=== PATIENT | male | born 1935 | race Hispanic/Latino ===

== ENCOUNTER → 2019-07-06 | Day surgery (SDC) | payer MEDICARE ==
[2019-07-03 14:11] LABS: BASOPHILS % 0.4 % (0.0-1.0); EOSINOPHILS # (AUTO) 0.3 (0.0-0.4); EOSINOPHILS % 4.2 % (0.0-6.0); HEMATOCRIT 49.2 % (38.2-49.6); HEMOGLOBIN 16.9 g/dL (14.0-18.0); LYMPHOCYTES # (AUTO) 1.7 (1.0-3.2); LYMPHOCYTES % 23.3 % (18.0-39.1); MEAN CORPUSCULAR HEMOGLOBIN 32.2 pg (28-32); MEAN CORPUSCULAR HGB CONC 34.3 g/dL (31-35); MEAN CORPUSCULAR VOLUME 93.7 fL (81-99); MONOCYTES # (AUTO) 0.5 (0.2-0.8); MONOCYTES % 7.6 % (4.4-11.3); NEUTROPHILS # (AUTO) 4.5 (2.1-6.9); NEUTROPHILS % 64.2 % (38.7-80.0); PLATELET COUNT 181 x10e3/uL (140-360); RED BLOOD COUNT 5.25 x10e6/uL (4.3-5.7); RED CELL DISTRIBUTION WIDTH 13.8 % (11.7-14.4)
[~2019-07-06] MED LIST: ARICEPT5 MG PO; ASPIRIN81 MG PO; ATORVASTATIN CA20 MG PO; CARAFATE1 GM/10 ML PO; EPHEDRINE SULFATE INJ 50 MG/10 ML SYR ONE; FENTANYL CITRATE/PF 100MCG/2 ML INJ ONE; GABAPENTIN300 MG PO; GLUCAGON FOR INJ 1 MG VIAL ONE; HYDROCHLOROTHIA25 MG PO; HYOSCYAMINE 0.125 MG TAB ONE; LOSARTAN POTAS100 MG PO; METOPROLOL SUCC50 MG PO; OMEPRAZOLE40 MG PO; PRAZOSIN HCL1 MG PO; PROPOFOL IV EMULSION 10 MG/ML 50 ML VIAL ONE
--- OUTSIDE RECORDS SUMMARY | 2019-07-06 08:17 | XMS REPORT ---
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 Name Role Phone Kayce Alvarez CP Unavailable Allergies No Known Allergies Problems Problem Type Condition Code Onset Dates Condition Status Problem Lower back pain M54.5 Active Problem Enlarged prostate with lower urinary tract symptoms (LUTS) N40.1 Active Problem Chest pain R07.9 Active Problem Non morbid obesity due to excess calories E66.09 Active Problem GERD (gastroesophageal reflux disease) K21.9 Active Problem LAE (left atrial enlargement) I51.7 Active Problem 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
--- OUTSIDE RECORDS SUMMARY | 2019-07-06 08:17 | XMS REPORT | Continuity of Care Document ---
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 Phone [email or web address] Unavailable Unavailable Problems Problem Status Onset Date Classification Date Reported Comments Source Lower back pain Active Problem 03/29/2018 Kayce Alvarez Enlarged prostate with lower urinary tract symptoms Active Problem 03/29/2018 Kayce Alvarez Chest pain Active Problem 03/29/2018 Kayce Alvarez Non morbid obesity due to excess calories Active Problem 03/29/2018 Kayce Alvarez GERD Active Problem 03/29/2018 Kayce Alvarez LAE Active Problem 03/29/2018 Kayce Alvarez Varicose veins of bilateral lower extremities with other complications Active Problem 03/29/2018 Kayce Alvarez Essential hypertension with goal blood pressure less than 130\/85 Active Diagnosis 03/29/2018 Kayce Alvarez MENG Active Problem 03/29/2018 Kayce Alvarez Acquired insufficiency of aortic valve Active Problem 03/29/2018 Kayce Alvarez Nonrheumatic mitral insufficiency Active Problem 03/29/2018 Kayce Alvarez 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 Problem 03/29/2018 Kayce Alvarez Venous insufficiency (peripheral) Active Problem 03/29/2018 Kayce Alvarez Medications Medication Details Route Status Patient Instructions Ordering Provider Order Date Source Hydrochlorothiazide 1 tablet Orally Active 25 MG Orally Once a day [place] 08/21/2017 Kayce Alvarez Hydrochlorothiazide 1 tablet Orally Active 25 MG Orally Once a day [place] 08/21/2017 Kayce Alvarez Aspirin Adult Low Dose 1 tablet Orally Active 81 MG Orally Once a day Antonio Alvarez Omeprazole 1 capsule Orally Active 20 MG Orally Once a day Antonio Alvarez Cetirizine HCl 1 tablet as needed Orally Active 10 MG Orally Once a day Antonio Alvarez Losartan Potassium 1 tablet Orally Active 50 MG Orally Once a day Antonio Alvarez Naproxen 1 tablet Orally Active 250 MG Orally Twice a day [facility] Christian Alvarez Amlodipine Besylate 1 tablet Orally Active 5 MG Orally Once a day [facility] Christina Alvarez Cetirizine HCl 1 tablet as needed Orally Active 10 MG Orally Once a day [facility] Christina Alvarez Losartan Potassium 1 tablet Orally Active 50 MG Orally Once a day [facility] Christina Antonio Aspirin Adult Low Dose 1 tablet Orally Active 81 MG Orally Once a day [facility] Antonio Omeprazole 1 capsule Orally Active 20 MG Orally Once a day [facility] [place] Naproxen 1 tablet Orally Active 250 MG Orally Twice a day [facility] Christina Alvarez Doc-Q-Lace 1 capsule as needed Orally Active 100 MG Orally Once a day [facility] Christina Alvarez Nortriptyline HCl 1 capsule Orally Active 10 MG Orally Once a day [facility] Christina Rogerscinthia Tamsulosin HCl 1 capsule 30 minutes after the same meal each day Orally Active 0.4 MG Orally Once a day [facility] Christina Rogerscinthia Amlodipine Besylate 1 tablet Orally Active 5 MG Orally Once a day [facility] Christina Alvarez Allergies, Adverse Reactions, Alerts Substance Category Reaction Severity Reaction type Status Date Reported Comments Source Seasonal Allergies Adverse Reaction Sneezing /Irritation Adverse Reaction Active 10/21/2017 Kayce Vasquez [place] Immunizations No Data Provided for This Section Results No Data Provided for This Section Pathology Reports No Data Provided for This Section Diagnostic Reports No Data Provided for This Section Consultation Notes No Data Provided for This Section Discharge Summaries No Data Provided for This Section History and Physicals No Data Provided for This Section Vital Signs Vital Sign Value Date Comments Source Weight 194 10/21/2017 Kayce Christina [place] Height 66 10/21/2017 Kayce Alvarez Temperature Oral (F) 97.4 F 10/21/2017 Kayce Alvarez Heart Rate 71 10/21/2017 Kayce Alvarez Diastolic (mm Hg) 78 10/21/2017 Kayce Alvarez Systolic (mm Hg) 120 10/21/2017 Kayce Alvarez Weight 200 08/21/2017 Kayce Alvarez Height 66 08/21/2017 Mohamed O Jeroudi Temperature Oral (F) 97.0 F 08/21/2017 Mohamed O Jeroudi Heart Rate 71 08/21/2017 Mohamed O Jeroudi Diastolic (mm Hg) 80 08/21/2017 Mohamed O Jeroudi Systolic (mm Hg) 138 08/21/2017 Mohamed O Jeroudi Weight 195 08/05/2017 Mohamed O Jeroudi Height 66 08/05/2017 Mohamed O [place]oudi Temperature Oral (F) 97.1 F 08/05/2017 Mohamed O Jeroudi Heart Rate 71 08/05/2017 Mohamed O Jeroudi Diastolic (mm Hg) 80 08/05/2017 Mohamed O Jeroudi Systolic (mm Hg) 110 08/05/2017 Mohamed O Jeroudi Weight 180 02/23/2016 Mohamed O Jeroudi Height 66 02/23/2016 Mohamed O Jeroudi Temperature Oral (F) 97.1 F 02/23/2016 Mohamed O Jeroudi Heart Rate 80 02/23/2016 Mohamed O Jeroudi Diastolic (mm Hg) 90 02/23/2016 Mohamed O Jeroudi Systolic (mm Hg) 136 02/23/2016 Mohamed O Jeroudi Encounters No Data Provided for This Section Procedures No Data Provided for This Section Assessment and Plan No Data Provided for This Section Plan of Care No Data Provided for This Section Social History No Data Provided for This Section Family History No Data Provided for This Section Advance Directives No Data Provided for This Section Functional Status No Data Provided for This Section
--- OUTSIDE RECORDS SUMMARY | 2019-07-06 08:17 | XMS REPORT ---
Author Author Bibi Alvarez Organization [employer] Address Unknown Phone Unavailable Care Team Providers Care Blue Leather Setter Name Role Phone Bibi Alvarez Unavailable Allergies, Adverse Reactions, Alerts Substance Reaction Event Type Seasonal Allergies Sneezing /Irritation Non Drug Allergy Problems Problem Type Condition Code Onset Dates Condition Status Problem Lower back pain M54.5 Active Problem Enlarged prostate with lower urinary tract symptoms (LUTS) N40.1 Active Problem Chest pain R07.9 Active Problem GERD (gastroesophageal reflux disease) K21.9 Active Problem LAE (left atrial enlargement) I51.7 Active Problem 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 Active Problem Essential hypertension with goal blood pressure less than 130\/85 I10 Active Problem MENG (dyspnea on exertion) R06.09 Active Problem Acquired insufficiency of aortic valve I35.1 Active Problem Nonrheumatic mitral (valve) insufficiency I34.0 Active Assessment Essential hypertension with goal blood pressure less than 130\/85 I10 Active Assessment MENG (dyspnea on exertion) R06.09 Active Assessment 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 Active Assessment Non morbid obesity due to excess calories E66.09 Active Problem Non morbid obesity due to excess calories E66.09 Active Medications Medication Code System Code Instructions Start Date End Date Status Dosage Amlodipine Besylate [facility] [address]-50 5 MG Orally Once a day Inactive 1 tablet Cetirizine HCl [facility] [address]-26 10 MG Orally Once a day Active 1 tablet as needed Hydrochlorothiazide [facility] [address]-84 25 MG Orally Once a day Aug 21, 2017 Active 1 tablet Losartan Potassium [facility] [address]-03 50 MG Orally Once a day Active 1 tablet Aspirin Adult Low Dose [facility] [address]-87 81 MG Orally Once a day Active 1 tablet Omeprazole [facility] [address]-98 20 MG Orally Once a day Active 1 capsule Naproxen [facility] [address]-28 250 MG Orally Twice a day Active 1 tablet Vital Signs Date/Time: Aug 21, 2017 BMI 32.28 Index Weight 200 lbs Height 66 in Temperature 97.0 F Cardiac Monitoring Heart Rate 71 /min Blood Pressure Diastolic 80 mm Hg Blood Pressure Systolic 138 mm Hg Results No Known Results Summary Purpose [employer] Submission
--- OUTSIDE RECORDS SUMMARY | 2019-07-06 08:17 | XMS REPORT ---
Author Author Bibi Alvarez Organization [employer] Address Unknown Phone Unavailable Care Team Providers Care [employer] Name Role Phone Bibi Alvarez Unavailable Allergies, Adverse Reactions, Alerts Substance Reaction Event Type Seasonal Allergies Sneezing /Irritation Non Drug Allergy Problems Problem Type Condition Code Onset Dates Condition Status Problem Enlarged prostate with lower urinary tract symptoms (LUTS) N40.1 Active Problem MENG (dyspnea on exertion) R06.09 Active Problem Non morbid obesity due to excess calories E66.09 Active Problem Status post ablation of incompetent vein using laser Z98.890 Active Problem GERD (gastroesophageal reflux disease) K21.9 Active Problem Venous insufficiency (chronic) (peripheral) I87.2 Active Problem Acquired insufficiency of aortic valve I35.1 Active Problem LAE (left atrial enlargement) I51.7 Active Problem 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 Active Problem Nonrheumatic mitral (valve) insufficiency I34.0 Active Assessment Non morbid obesity due to excess calories E66.09 Active Assessment MENG (dyspnea on exertion) R06.09 Active Problem Chest pain R07.9 Active Assessment Essential hypertension with goal blood pressure less than 130\/85 I10 Active Problem Lower back pain M54.5 Active Assessment 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 Active Problem Essential hypertension with goal blood pressure less than 130\/85 I10 Active Medications Medication Code System Code Instructions Start Date End Date Status Dosage Naproxen ND 16417276428 250 MG Orally Twice a day Active 1 tablet Amlodipine Besylate ND 64631241601 5 MG Orally Once a day Active 1 tablet Cetirizine HCl ND 01839833794 10 MG Orally Once a day Active 1 tablet as needed Omeprazole ND 63983215860 20 MG Orally Once a day Active 1 capsule Losartan Potassium ND 05539548866 50 MG Orally Once a day Active 1 tablet Aspirin Adult Low Dose [facility] 38568198568 81 MG Orally Once a day Active 1 tablet Vital Signs Date/Time: Aug 05, 2017 BMI 31.47 Index Weight 195 lbs Height 66 in Temperature 97.1 F Cardiac Monitoring Heart Rate 71 /min Blood Pressure Diastolic 80 mm Hg Blood Pressure Systolic 110 mm Hg Results No Known Results Summary Purpose [employer] Submission
--- OUTSIDE RECORDS SUMMARY | 2019-07-06 08:17 | XMS REPORT ---
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 Name Role Phone Kayce Alvarez CP Unavailable Allergies, Adverse Reactions, Alerts Substance Reaction Event Type Seasonal Allergies Sneezing /Irritation Non Drug Allergy Problems Problem Type Condition Code Onset Dates Condition Status Assessment Chest pain R07.9 Active Problem Lower back pain M54.5 Active Problem Non morbid obesity due to excess calories E66.09 Active Problem Acquired insufficiency of aortic valve I35.1 Active Problem Nonrheumatic mitral (valve) insufficiency I34.0 Active Problem LAE (left atrial enlargement) I51.7 Active Problem Enlarged prostate with lower urinary tract symptoms (LUTS) N40.1 Active Problem Chest pain R07.9 Active Problem Essential hypertension with goal blood pressure less than 130\/85 I10 Active Problem MENG (dyspnea on exertion) R06.09 Active Assessment Lower back pain M54.5 Active Assessment Enlarged prostate with lower urinary tract symptoms (LUTS) N40.1 Active Assessment GERD (gastroesophageal reflux disease) K21.9 Active Assessment MENG (dyspnea on exertion) R06.09 Active Assessment Non morbid obesity due to excess calories E66.09 Active Assessment Essential hypertension with goal blood pressure less than 130\/85 I10 Active Medications Medication Code System Code Instructions Start Date End Date Status Dosage Cetirizine HCl [facility] [address]-76 10 MG Orally Once a day Active 1 tablet as needed Doc-Q-Lace [facility] [address]-30 100 MG Orally Once a day Active 1 capsule as needed Nortriptyline HCl [facility] [address]-19 10 MG Orally Once a day Active 1 capsule Amlodipine Besylate [facility] [address]-19 5 MG Orally Once a day Active 1 tablet Omeprazole [facility] [address]-61 20 MG Orally Once a day Active 1 capsule Losartan Potassium [facility] [address]-38 50 MG Orally Once a day Active 1 tablet Tamsulosin HCl [facility] [address]-53 0.4 MG Orally Once a day Active 1 capsule 30 minutes after the same meal each day Aspirin Adult Low Dose [facility] [address]-77 81 MG Orally Once a day Active 1 tablet Vital Signs Date/Time: February 23, 2016 BMI 29.05 Index Weight 180 lbs Height 66 in Temperature 97.1 F Cardiac Monitoring Heart Rate 80 /min Blood Pressure Diastolic 90 mm Hg Blood Pressure Systolic 136 mm Hg Results No Known Results Summary Purpose [employer] Submission
--- OUTSIDE RECORDS SUMMARY | 2019-07-06 08:18 | XMS REPORT ---
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.890 Active Problem Lower back pain M54.5 Active Assessment Venous insufficiency (chronic) (peripheral) I87.2 Active Problem Essential hypertension with goal blood pressure less than 130\/85 I10 Active Medications Medication Code System Code Instructions Start Date End Date Status Dosage Aspirin Adult Low Dose [facility] 36242340069 81 MG Orally Once a day Active 1 tablet Hydrochlorothiazide ND 77206524748 25 MG Orally Once a day Aug 21, 2017 Active 1 tablet Omeprazole ND 90169644134 20 MG Orally Once a day Active 1 capsule Cetirizine HCl ND 18486469614 10 MG Orally Once a day Active 1 tablet as needed Losartan Potassium ND 80560956356 50 MG Orally Once a day Active 1 tablet Naproxen [facility] 49115960528 250 MG Orally Twice a day Active 1 tablet Vital Signs Date/Time: Oct 21, 2017 BMI 31.31 Index Weight 194 lbs Height 66 in Temperature 97.4 F Cardiac Monitoring Heart Rate 71 /min Blood Pressure Diastolic 78 mm Hg Blood Pressure Systolic 120 mm Hg Results No Known Results Summary Purpose [employer]Works Submission
--- OUTSIDE RECORDS SUMMARY | 2019-07-06 08:18 | XMS REPORT ---
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 Allergies, Adverse Reactions, Alerts Allergy Name Allergy Type Status Severity Reaction(s) Onset Date Inactive Date Treating Clinician Comments No Known Allergies DA Active U 2015-02-17 00:00:00 Medications This patient has no known medications. Results Test Description Test Time Test Comments Text Results Atomic Results Result Comments - NM BONE WHOLE BODY 2019-07-03 13:35:00 FAX: Johnathan Alexander MD [phone] [place]: B St: [facility] FAX: Gage Washington MD [phone] Name: JESSICA PRESCOTT [facility] : 1935 Age/S: 84/M [address] [facility] Unit #: [id number] Loc: [place] [address] Phys: Gage Pratt MD Acct: [id number] Dis Date: Status: REG CLI PHONE #: [phone] Exam Date: 07/03/2019 1046 FAX #: [phone] Reason: S32.030D,S32.040D EXAMS: CPT CODE: [id number] NM BONE WHOLE BODY 23718 HISTORY: S32.030D,S32.040D TECHNIQUE: 3 hour delayed anterior and posterior planar gamma camera imaging of the whole body was acquired after IV injection of 25 mCi TC 99m MDP. COMPARISON: MR lumbar spine November 07, 2018 as well as MR of the left shoulder May 21, 2018. FINDINGS: There is increased tracer uptake in the bilateral shoulders, more pronounced on the left side, and in the right elbow. Mild increased tracer uptake is present in the knee joints and left midfoot. These likely represent degenerative changes. There is increased uptake of tracer in vertebral bodies L3-L5. There is also a focus of uptake on the right side of vertebral body L2. These may be IMPRESSION: Increased tracer uptake in vertebral bodies L2-L5 may represent compression fractures as described in the patient history. Correlation with radiographs and/or cross-sectional imaging of the lumbar spine is recommended. Increased tracer uptake in the right elbow and bilateral 4, greater on the left side, likely represent degenerative changes. Additional degenerative changes are present in the knees and left foot. at 4318 Reported and signed by: Carter Eduardo MD CC: Johnathan Alexander MD; Gage Pratt MD Technologist: Valeri Juarez RT(N) Trnscrd Date/Time/By: 07/03/2019 (4495) : By: [email or web address] Orig Print D /T: S: 07/03/2019 (2576) PAGE 1 Signed Report BASIC METABOLIC PANEL 2019-05-08 12:19:00 SODIUM (test code=NA) 138 mmol/L 136-145 POTASSIUM (test code=K) 3.2 mmol/L 3.5-5.1 CHLORIDE (test code=CL) 105.0 mmol/L 98-107 CARBON DIOXIDE (test code=CO2) 23.0 mmol/L 21-32 ANION GAP (test code=GAP) 13.2 10-20 GLUCOSE (test code=GLU) 161 mg/dL 74-106 BLOOD UREA NITROGEN (test code=BUN) 17 mg/dL 7-18 GLOMERULAR FILTRATION RATE (test code=GFR) 39 mL/min >=60 Estimated GFR by using Modified MDRD formula.Chronic kidney disease is defined as either kidney damageor GFR <60 mL/min/1.73 m2 for >3 months. CREATININE (test code=CREAT) 1.70 mg/dL 0.7-1.3 BUN/CREATININE RATIO (test code=BUN/CREA) 10.0 10-20 CALCIUM (test code=CA) 8.9 mg/dL 8.5-10.1 [id number] 12:19:00* Test Item Value Reference Range Comments TROPONIN-I (test code=TROPI) <0.015 ng/mL 0-0.045 [id number] 12:19:00* Test Item Value Reference Range Comments MAGNESIUM (test code=MAG) 2.1 mg/dL 1.8-2.4 - XR CHEST 1 [id number] 12:16:00 FAX: Judy Alcantara [phone] [place]: St: REG FAX: Johnathan Alexander MD [phone] Name: JESSICA PRESCOTT [facility] : 1935 Age/S: 83/M [address] [facility] Unit #: [id number] Loc: [place] [address] Phys: Judy Desir MD Acct: [id number] Dis Date: Status: REG ER PHONE #: [phone] Exam Date: 05/08/2019 1151 FAX #: [phone] Reason: weakness EXAMS: CPT CODE: [id number] XR CHEST 1 V 05891 HISTORY: Weakness. COMPARISON: September 13, 2015. No acute infiltrates, effusion or congestion is noted. Suboptimal inspiration with dependent changes. Cardiomegaly. IMPRESSION: No acute infiltrates, effusion or congestion. at 1216 Reported and signed by: Festus Marshall M.D. CC: Judy Desir MD; Johnathan Alexander MD Technologist: KENNETH CONROY, RT(R) Trnscrd Date/Time/By: 05/08/2019 (7753) : By: [email or web address] Orig Print D/T: S: 05/08/2019 (1605) PAGE 1 Signed Report CBC W/O DIFF 2019-05-08 12:12:00* Test Item Value Reference Range Comments WHITE BLOOD CELL (test code=WBC) 10.9 K/mm3 4.5-12.5 RED BLOOD CELL (test code=RBC) 4.74 mill/mm3 4.0-5.8 HEMOGLOBIN (test code=HGB) 15.2 gram/dL 13.0-17.5 HEMATOCRIT (test code=HCT) 46.0 % 42.0-52.0 MEAN CELL VOLUME (test code=MCV) 97.0 fL 80-98 MEAN CELL HGB (test code=MCH) 32.1 picogram 27.0-33.0 MEAN CELL HGB CONCETRATION (test code=MCHC) 33.0 gram/dL 33.0-36.0 RED CELL DISTRIBUTION WIDTH (test code=RDW) 14.1 % 11.6-16.2 PLATELET COUNT (test code=PLT) 190 K/mm3 150-450 MEAN PLATELET VOLUME (test code=MPV) 11.6 fL 6.7-11.0 BASIC METABOLIC [id number] 12:11:00* Test Item Value Reference Range Comments SODIUM (test code=NA) 138 mmol/L 136-145 POTASSIUM (test code=K) 3.2 mmol/L 3.5-5.1 CHLORIDE (test code=CL) 105.0 mmol/L 98-107 CARBON DIOXIDE (test code=CO2) mmol/L 21-32 ANION GAP (test code=GAP) 10-20 GLUCOSE (test code=GLU) mg/dL 74-106 BLOOD UREA NITROGEN (test code=BUN) mg/dL 7-18 GLOMERULAR FILTRATION RATE (test code=GFR) mL/min >=60 CREATININE (test code=CREAT) mg/dL 0.7-1.3 BUN/CREATININE RATIO (test code=BUN/CREA) 10-20 CALCIUM (test code=CA) mg/dL 8.5-10.1 [id number] 12:11:00* Test Item Value Reference Range Comments TROPONIN-I (test code=TROPI) ng/mL 0-0.045 CBC W/O [id number] 12:03:00* Test Item Value Reference Range Comments WHITE BLOOD CELL (test code=WBC) K/mm3 4.5-12.5 RED BLOOD CELL (test code=RBC) mill/mm3 4.0-5.8 HEMOGLOBIN (test code=HGB) 15.2 gram/dL 13.0-17.5 HEMATOCRIT (test code=HCT) 46.0 % 42.0-52.0 MEAN CELL VOLUME (test code=MCV) fL 80-98 MEAN CELL HGB (test code=MCH) picogram 27.0-33.0 MEAN CELL HGB CONCETRATION (test code=MCHC) gram/dL 33.0-36.0 RED CELL DISTRIBUTION WIDTH (test code=RDW) % 11.6-16.2 PLATELET COUNT (test code=PLT) K/mm3 150-450 MEAN PLATELET VOLUME (test code=MPV) fL 6.7-11.0 COMPREHENSIVE METABOLIC [id number] 07:22:00* Test Item Value Reference Range Comments SODIUM (test code=NA) 141 mmol/L 136-145 POTASSIUM (test code=K) 3.3 mmol/L 3.5-5.1 CHLORIDE (test code=CL) 105.0 mmol/L 98-107 CARBON DIOXIDE (test code=CO2) 30.0 mmol/L 21-32 ANION GAP (test code=GAP) 9.3 10-20 GLUCOSE (test code=GLU) 115 mg/dL 74-106 BLOOD UREA NITROGEN (test code=BUN) 11 mg/dL 7-18 GLOMERULAR FILTRATION RATE (test code=GFR) 53 mL/min >=60 Estimated GFR by using Modified MDRD formula.Chronic kidney disease is defined as either kidney damageor GFR <60 mL/min/1.73 m2 for >3 months. CREATININE (test code=CREAT) 1.30 mg/dL 0.7-1.3 BUN/CREATININE RATIO (test code=BUN/CREA) 8.5 10-20 TOTAL PROTEIN (test code=PROT) 7.0 gram/dL 6.4-8.2 ALBUMIN (test code=ALB) 3.4 g/dL 3.4-5.0 GLOBULIN (test code=GLOB) 3.6 gram/dL 2.7-4.2 ALBUMIN/GLOBULIN RATIO (test code=A/G) 0.9 0.75-1.50 CALCIUM (test code=CA) 8.7 mg/dL 8.5-10.1 BILIRUBIN TOTAL (test code=BILT) 0.50 mg/dL 0.0-1.0 SGOT/AST (test code=AST) 35 IUnit/L 15-37 SGPT/ALT (test code=ALT) 53 IUnit/L 12-78 ALKALINE PHOSPHATASE TOTAL (test code=ALKP) 95 IUnit/L 45-117 Note change in reference range due to change in reagent. LIPID PROFILE (CORONARY RISK)2019-04-08 07:22:00* Test Item Value Reference Range Comments TRIGLYCERIDES (test code=TRIG) 190 mg/dL 20-150 CHOLESTEROL (test code=CHOL) 144 mg/dL 0-200 CHOLESTEROL/HDL RATIO (test code=CHOLHDL) 4.0 RATIO 0-4.9 RISK ASSOCIATED WITH CHOL/HDL RATIOS: Risk Male Female1/2 AVERAGE 3.43 3.27AVERAGE 4.97 4.442X AVERAGE 9.55 7.053X AVERAGE 23.39 11.04 REFERENCE VALUE IS RELATED TO RISK LEVELS ASRECOMMENDED BY THE ENRIKE. HEART, LUNG, AND BLOOD INST. HDL CHOLESTEROL (test code=HDL) 30 mg/dL 40-60 LIPOPROTEIN LDL (test code=LDL) 96 mg/dL 100-129 Reference Interval: mg/dL mmol/L Optimal <100 <2.6Near/above optimal 100-129 2.6- 3.3Borderline High 130-159 3.4-4.1High 160-189 4.1-4.9Very High >=190 >=4.9=========This LDL result is a direct measurement.========= THYROID STIMULATING [id number] 07:22:00* Test Item Value Reference Range Comments THYROID STIMULATING HORMONE (test code=TSH) 1.330 uIU/mL 0.36-3.74 TSH REFERENCE RANGES: EUTHYROID: 0.35 - 4.3 mIU/mL HYPO : > 5.5 mIU/mL HYPER : < 0.35 mIU/mL [id number] 07:22:00* Test Item Value Reference Range Comments TESTOSTERONE (test code=TEST) 595 ng/dL 264-916 Adult male reference interval is based on a population ofhealthy nonobese males (BMI <30) between 19 and 39 yearsold. Talat et.al. JCEM 2017,102;3278-5671. PMID:[id number].Performed At: [facility] [address] [id number] Juwan Silver MD Ph:[phone] COMPREHENSIVE METABOLIC [id number] 10:16:00* Test Item Value Reference Range Comments SODIUM (test code=NA) 141 mmol/L 136-145 POTASSIUM (test code=K) 3.3 mmol/L 3.5-5.1 CHLORIDE (test code=CL) 105.0 mmol/L 98-107 CARBON DIOXIDE (test code=CO2) 30.0 mmol/L 21-32 ANION GAP (test code=GAP) 9.3 10-20 GLUCOSE (test code=GLU) 115 mg/dL 74-106 BLOOD UREA NITROGEN (test code=BUN) 11 mg/dL 7-18 GLOMERULAR FILTRATION RATE (test code=GFR) 53 mL/min >=60 Estimated GFR by using Modified MDRD formula.Chronic kidney disease is defined as either kidney damageor GFR <60 mL/min/1.73 m2 for >3 months. CREATININE (test code=CREAT) 1.30 mg/dL 0.7-1.3 BUN/CREATININE RATIO (test code=BUN/CREA) 8.5 10-20 TOTAL PROTEIN (test code=PROT) 7.0 gram/dL 6.4-8.2 ALBUMIN (test code=ALB) 3.4 g/dL 3.4-5.0 GLOBULIN (test code=GLOB) 3.6 gram/dL 2.7-4.2 ALBUMIN/GLOBULIN RATIO (test code=A/G) 0.9 0.75-1.50 CALCIUM (test code=CA) 8.7 mg/dL 8.5-10.1 BILIRUBIN TOTAL (test code=BILT) 0.50 mg/dL 0.0-1.0 SGOT/AST (test code=AST) 35 IUnit/L 15-37 SGPT/ALT (test code=ALT) 53 IUnit/L 12-78 ALKALINE PHOSPHATASE TOTAL (test code=ALKP) 95 IUnit/L 45-117 Note change in reference range due to change in reagent. LIPID PROFILE (CORONARY RISK)2019-04-07 10:16:00* Test Item Value Reference Range Comments TRIGLYCERIDES (test code=TRIG) 190 mg/dL 20-150 CHOLESTEROL (test code=CHOL) 144 mg/dL 0-200 CHOLESTEROL/HDL RATIO (test code=CHOLHDL) 4.0 RATIO 0-4.9 RISK ASSOCIATED WITH CHOL/HDL RATIOS: Risk Male Female1/2 AVERAGE 3.43 3.27AVERAGE 4.97 4.442X AVERAGE 9.55 7.053X AVERAGE 23.39 11.04 REFERENCE VALUE IS RELATED TO RISK LEVELS ASRECOMMENDED BY THE ENRIKE. HEART, LUNG, AND BLOOD INST. HDL CHOLESTEROL (test code=HDL) 30 mg/dL 40-60 LIPOPROTEIN LDL (test code=LDL) 96 mg/dL 100-129 Reference Interval: mg/dL mmol/L Optimal <100 <2.6Near/above optimal 100-129 2.6- 3.3Borderline High 130-159 3.4-4.1High 160-189 4.1-4.9Very High >=190 >=4.9=========This LDL result is a direct measurement.========= THYROID STIMULATING [id number] 10:16:00* Test Item Value Reference Range Comments THYROID STIMULATING HORMONE (test code=TSH) 1.330 uIU/mL 0.36-3.74 TSH REFERENCE RANGES: EUTHYROID: 0.35 - 4.3 mIU/mL HYPO : > 5.5 mIU/mL HYPER : < 0.35 mIU/mL [id number] 10:16:00* Test Item Value Reference Range Comments TESTOSTERONE (test code=TEST) ng/dL 264-916 COMPREHENSIVE METABOLIC [id number] 10:15:00* Test Item Value Reference Range Comments SODIUM (test code=NA) 141 mmol/L 136-145 POTASSIUM (test code=K) 3.3 mmol/L 3.5-5.1 CHLORIDE (test code=CL) 105.0 mmol/L 98-107 CARBON DIOXIDE (test code=CO2) mmol/L 21-32 ANION GAP (test code=GAP) 10-20 GLUCOSE (test code=GLU) mg/dL 74-106 BLOOD UREA NITROGEN (test code=BUN) mg/dL 7-18 GLOMERULAR FILTRATION RATE (test code=GFR) mL/min >=60 CREATININE (test code=CREAT) mg/dL 0.7-1.3 BUN/CREATININE RATIO (test code=BUN/CREA) 10-20 TOTAL PROTEIN (test code=PROT) gram/dL 6.4-8.2 ALBUMIN (test code=ALB) g/dL 3.4-5.0 GLOBULIN (test code=GLOB) gram/dL 2.7-4.2 ALBUMIN/GLOBULIN RATIO (test code=A/G) 0.75-1.50 CALCIUM (test code=CA) mg/dL 8.5-10.1 BILIRUBIN TOTAL (test code=BILT) mg/dL 0.0-1.0 SGOT/AST (test code=AST) IUnit/L 15-37 SGPT/ALT (test code=ALT) IUnit/L 12-78 ALKALINE PHOSPHATASE TOTAL (test code=ALKP) IUnit/L 45-117 LIPID PROFILE (CORONARY RISK)2019-04-07 10:15:00* Test Item Value Reference Range Comments TRIGLYCERIDES (test code=TRIG) mg/dL 20-150 CHOLESTEROL (test code=CHOL) mg/dL 0-200 CHOLESTEROL/HDL RATIO (test code=CHOLHDL) RATIO 0-4.9 HDL CHOLESTEROL (test code=HDL) mg/dL 40-60 LIPOPROTEIN LDL (test code=LDL) mg/dL 100-129 THYROID STIMULATING [id number] 10:15:00* Test Item Value Reference Range Comments THYROID STIMULATING HORMONE (test code=TSH) uIU/mL 0.36-3.74 [id number] 10:15:00* Test Item Value Reference Range Comments TESTOSTERONE (test code=TEST) ng/dL 264-916 [id number] 09:28:00* Test Item Value Reference Range Comments GLYCOSYLATED HEMOGLOBIN (HA1C) (test code=GLYHGB) 5.9 % HbA1 4.8-6.0 ESTIMATED AVERAGE GLUCOSE (test code=EAG) 123 MG/DL CBC W/AUTO [id number] 08:59:00* Test Item Value Reference Range Comments WHITE BLOOD CELL (test code=WBC) K/mm3 4.5-12.5 RED BLOOD CELL (test code=RBC) mill/mm3 4.0-5.8 HEMOGLOBIN (test code=HGB) 16.1 gram/dL 13.0-17.5 HEMATOCRIT (test code=HCT) 47.6 % 42.0-52.0 MEAN CELL VOLUME (test code=MCV) fL 80-98 MEAN CELL HGB (test code=MCH) picogram 27.0-33.0 MEAN CELL HGB CONCETRATION (test code=MCHC) gram/dL 33.0-36.0 RED CELL DISTRIBUTION WIDTH (test code=RDW) % 11.6-16.2 RED CELL DISTRIBUTION WIDTH SD (test code=RDW-SD) fL 37.0-51.0 PLATELET COUNT (test code=PLT) K/mm3 150-450 MEAN PLATELET VOLUME (test code=MPV) fL 6.7-11.0 NEUTROPHIL % (test code=NT%) % 39.0-69.0 IMMATURE GRANULOCYTE % (test code=IG%) % 0.0-5.0 LYMPHOCYTE % (test code=LY%) % 25.0-55.0 MONOCYTE % (test code=MO%) % 0.0-10.0 EOSINOPHIL % (test code=EO%) % 0.0-5.0 BASOPHIL % (test code=BA%) % 0.0-1.0 NEUTROPHIL # (test code=NT#) K/mm3 1.8-7.7 LYMPHOCYTE # (test code=LY#) K/mm3 1.0-5.0 MONOCYTE # (test code=MO#) K/mm3 0-0.8 EOSINOPHIL # (test code=EO#) K/mm3 0.0-0.5 BASOPHIL # (test code=BA#) K/mm3 0.0-0.2 CBC W/AUTO [id number] 08:59:00* Test Item Value Reference Range Comments WHITE BLOOD CELL (test code=WBC) 6.0 K/mm3 4.5-12.5 RED BLOOD CELL (test code=RBC) 5.00 mill/mm3 4.0-5.8 HEMOGLOBIN (test code=HGB) 16.1 gram/dL 13.0-17.5 HEMATOCRIT (test code=HCT) 47.6 % 42.0-52.0 MEAN CELL VOLUME (test code=MCV) 95.2 fL 80-98 MEAN CELL HGB (test code=MCH) 32.2 picogram 27.0-33.0 MEAN CELL HGB CONCETRATION (test code=MCHC) 33.8 gram/dL 33.0-36.0 RED CELL DISTRIBUTION WIDTH (test code=RDW) 14.7 % 11.6-16.2 RED CELL DISTRIBUTION WIDTH SD (test code=RDW-SD) 51.3 fL 37.0-51.0 PLATELET COUNT (test code=PLT) 185 K/mm3 150-450 MEAN PLATELET VOLUME (test code=MPV) 10.9 fL 6.7-11.0 NEUTROPHIL % (test code=NT%) 53.5 % 39.0-69.0 IMMATURE GRANULOCYTE % (test code=IG%) 0.5 % 0.0-5.0 LYMPHOCYTE % (test code=LY%) 28.5 % 25.0-55.0 MONOCYTE % (test code=MO%) 10.0 % 0.0-10.0 EOSINOPHIL % (test code=EO%) 6.8 % 0.0-5.0 BASOPHIL % (test code=BA%) 0.7 % 0.0-1.0 NUCLEATED RBC % (test code=NRBC%) 0.0 % 0-0 NEUTROPHIL # (test code=NT#) 3.22 K/mm3 1.8-7.7 IMMATURE GRANULOCYTE # (test code=IG#) 0.03 x10 3/uL 0-0.03 LYMPHOCYTE # (test code=LY#) 1.71 K/mm3 1.0-5.0 MONOCYTE # (test code=MO#) 0.60 K/mm3 0-0.8 EOSINOPHIL # (test code=EO#) 0.41 K/mm3 0.0-0.5 BASOPHIL # (test code=BA#) 0.04 K/mm3 0.0-0.2 NUCLEATED RBC # (test code=NRBC#) 0.00 K/mm3 0.0-0.1 MANUAL DIFF REQUIRED (test code=MDIFF) NO BASIC METABOLIC [id number] 10:48:00* Test Item Value Reference Range Comments SODIUM (test code=NA) 142 mmol/L 136-145 POTASSIUM (test code=K) 3.5 mmol/L 3.5-5.1 CHLORIDE (test code=CL) 102.0 mmol/L 98-107 CARBON DIOXIDE (test code=CO2) 35.0 mmol/L 21-32 ANION GAP (test code=GAP) 8.5 10-20 GLUCOSE (test code=GLU) 125 mg/dL 74-106 BLOOD UREA NITROGEN (test code=BUN) 16 mg/dL 7-18 GLOMERULAR FILTRATION RATE (test code=GFR) 53 mL/min >=60 Estimated GFR by using Modified MDRD formula.Chronic kidney disease is defined as either kidney damageor GFR <60 mL/min/1.73 m2 for >3 months. CREATININE (test code=CREAT) 1.30 mg/dL 0.7-1.3 BUN/CREATININE RATIO (test code=BUN/CREA) 12.3 10-20 CALCIUM (test code=CA) 9.4 mg/dL 8.5-10.1 BASIC METABOLIC [id number] 10:43:00* Test Item Value Reference Range Comments SODIUM (test code=NA) 142 mmol/L 136-145 POTASSIUM (test code=K) 3.5 mmol/L 3.5-5.1 CHLORIDE (test code=CL) 102.0 mmol/L 98-107 CARBON DIOXIDE (test code=CO2) mmol/L 21-32 ANION GAP (test code=GAP) 10-20 GLUCOSE (test code=GLU) mg/dL 74-106 BLOOD UREA NITROGEN (test code=BUN) mg/dL 7-18 GLOMERULAR FILTRATION RATE (test code=GFR) mL/min >=60 CREATININE (test code=CREAT) mg/dL 0.7-1.3 BUN/CREATININE RATIO (test code=BUN/CREA) 10-20 CALCIUM (test code=CA) mg/dL 8.5-10.1 VITAMIN [id number] 17:34:00* Test Item Value Reference Range Comments VITAMIN B12 (test code=VITB12) 496 pg/mL 193-986
[2019-07-06 13:05] VITALS: BP 101/65
--- NOTE | 2019-08-13 08:35 | Operative Report ---
DATE OF PROCEDURE: 07/06/2019 SURGEON: Darrick Jeter MD PROCEDURE: EGD with biopsy note as well as a colonoscopy with polypectomy note. INDICATION FOR EGD: Dysphagia, history of melena. INDICATION FOR COLONOSCOPY: Colorectal cancer screening. MEDICATIONS: The patient was done under MAC. Please see anesthesiologist's note. PROCEDURE IN DETAIL: With the patient in left lateral decubitus position, flexible fiberoptic Olympus gastroscope was introduced into the esophagus under direct visualization without any difficulty. There was some patchy erythema noted in distal esophagus. The scope was then advanced with ease into the stomach. Mucosa overlying the antrum revealed some patchy intense erythema and moderate edema and biopsies were obtained, sent to stain for H pylori. Pylorus was of normal contour and shape, it was intubated with ease and the scope was advanced all the way to the second portion of the duodenum. The scope was then withdrawn slowly. Mucosa overlying the proximal second portion and duodenal bulb grossly appeared to be within normal limits. Biopsies were obtained to rule out sprue. The scope was then withdrawn back into the stomach and retroflexed mucosa overlying the fundus appeared to be within normal limits. A minute nodule was noted in the cardia and that was biopsied. The scope was then straightened out it was subsequently withdrawn. The patient tolerated the procedure well. IMPRESSION: 1. Distal esophagitis, mild. 2. Esophagus dilated to size 52-[place]. 3. Cardia and minute nodule, biopsied. 4. Gastritis, biopsied. Biopsies sent to stain for H pylori. 5. Rule out sprue. PLAN: Follow up histology. Initiate Protonix 40 mg one p.o. q.a.m. before meals. SECOND PROCEDURE: The patient was then turned around. After adequate lubrication of the anal canal, a flexible fiberoptic Olympus colonoscope was inserted into the rectum with ease and advanced all the way to the cecum. Diverticular disease was noted throughout. The scope was then withdrawn slowly and one polyp was snared from the proximal ascending colon and additional polyp was snared from the distal ascending colon. Polypoid lesion with the yellowish over hue. It was noted in the proximal ascending colon suspicious for lipoma. It was biopsied. The transverse descending and sigmoid other than for diverticular disease appeared to be within normal limits. The rectum appeared to be within normal limits. The scope was then retroflexed into the distal rectum and small internal hemorrhoids were noted none of which was actively bleeding. The scope was then straightened out it was subsequently withdrawn, the patient tolerated the procedure well. IMPRESSION: 1. Pandiverticulosis. 2. Ascending colon polyps x2, snared. 3. Rule out lipoma proximal ascending colon. 4. Internal hemorrhoids none actively bleeding. PLAN: Follow up histology. Initiate high-fiber, low-fat diet. Initiate high-fiber supplement. Start Florastor one p.o. b.i.d. Darrick Jeter MD [facility] [place] /[id number] cc: Johnathan Alexander MD
== END | disposition home or self-care (01) ==
LOC: OR 08:11
PROVIDERS: ATTEND Internal Medicine Gastroenterology
DX: Z12.11 Encounter for screening for malignant neoplasm of colon (principal); K63.5 Polyp of colon; K29.70 Gastritis, unspecified, without bleeding; K20.9 Esophagitis, unspecified; K22.8 Other specified diseases of esophagus; K21.9 Gastro-esophageal reflux disease without esophagitis; K63.89 Other specified diseases of intestine; K57.30 Diverticulosis of large intestine without perforation or abscess without bleeding; K64.8 Other hemorrhoids; H91.90 Unspecified hearing loss, unspecified ear; R06.09 Other forms of dyspnea; I10 Essential (primary) hypertension; R00.1 Bradycardia, unspecified; F41.9 Anxiety disorder, unspecified; Z01.810 Encounter for preprocedural cardiovascular examination; Z01.812 Encounter for preprocedural laboratory examination; Z79.82 Long term (current) use of aspirin
CPT/HCPCS: 36415; 43239; 43450; 45380; 45385; 85025; 88305; 88312; 93005; J1610; J2704; J3010; 45378